=== PATIENT | female | born 1975 | race Caucasian/White ===

== ENCOUNTER 2019-07-22 20:33 | Emergency (ER) | payer SELFPAY ==
[~2019-07-22] VITALS: Ht 162.6 cm; Wt 84.0 kg
--- NOTE | 2019-07-22 20:42 | NUR ---
C-COLLAR PLACED IN TRIAGE.
[2019-07-22 21:25] LABS: BASOPHILS # (AUTO) 0.1 X10'3 (0-0.2); BASOPHILS % (AUTO) 1.4 % (0-1); EOSINOPHILS % (AUTO) 0.6 % (0-6); HEMATOCRIT 42.3 % (35.0-45.0); HEMOGLOBIN 13.8 g/dl (12.0-16.0); LYMPHOCYTES # (AUTO) 1.8 X10'3 (1.1-4.8); MEAN CORPUSCULAR HEMOGLOBIN 28.4 PG (27.0-31.0); MEAN CORPUSCULAR HGB CONC 32.7 g/dL (33.0-36.5); MEAN CORPUSCULAR VOLUME 86.8 FL (78-98); MEAN PLATELET VOLUME 8.2 FL (7.4-10.4); MONOCYTES # (AUTO) 0.4 X10'3 (0-0.9); MONOCYTES % (AUTO) 9.4 % (2-12); NEUTROPHILS % (AUTO) 46.6 % (42-75); PLATELET COUNT 314 X10'3 (140-440); RED BLOOD COUNT 4.87 X10'6 (4.20-5.60); RED CELL DISTRIBUTION WIDTH 13.3 % (11.5-14.5); WHITE BLOOD COUNT 4.3 X10'3 (4.5-11.0)
[2019-07-22] MEDS ORDERED: normal saline 1000ML IV soln IVB ONE (21:25)
[2019-07-22] MEDS ORDERED: ondansetron/PF 4mg/2ml inj IV ONE (21:25)
[2019-07-22] MEDS ORDERED: LORazepam 2 mg/ml vial IV ONE (21:25)
[2019-07-22 21:43] LABS: ALANINE AMINOTRANSFERASE 30 U/L (12-78); ALBUMIN 3.9 G/DL (3.4-5.0); ALBUMIN/GLOBULIN RATIO 1.1 (1.1-1.5); ALKALINE PHOSPHATASE 48 IU/L (46-116); ANION GAP 9 (8-16); ASPARTATE AMINO TRANSFERASE 34 U/L (10-37); BILIRUBIN,TOTAL 0.2 MG/DL (0.1-1.0); BLOOD UREA NITROGEN 8 MG/DL (7-18); BUN/CREATININE RATIO 10.5 (6.6-38.0); CALCIUM 8.5 MG/DL (8.5-10.1); CHLORIDE 109 MMOL/L (99-107); CREATININE 0.76 MG/DL (0.40-0.90); GLUCOSE 101 MG/DL (70-104); LIPASE 107 U/L (73-393); POTASSIUM 3.8 MMOL/L (3.5-5.1); SODIUM 146 MMOL/L (135-145); TOTAL CARBON DIOXIDE 27.9 MMOL/L (24-32); TOTAL PROTEIN 7.4 G/DL (6.4-8.2); eGFR 83 ML/MIN
[2019-07-22] MEDS ORDERED: LORA1TAB PO (22:06)
[2019-07-22] MEDS ORDERED: GABA300C PO (22:06)
[2019-07-22] MEDS ORDERED: folic acid 1mg/0.2ml inj IV ONE (22:10)
[2019-07-22] MEDS ORDERED: thiamine 100mg/ml 2ml inj. IV ONE (22:10)
[2019-07-22 22:23] VITALS: BP 132/72
== END 2019-07-22 22:51 | disposition home or self-care (01) ==
LOC: ER 20:34
DX: S09.90XA Unspecified injury of head, initial encounter (principal); M54.2 Cervicalgia; F10.229 Alcohol dependence with intoxication, unspecified; F41.9 Anxiety disorder, unspecified; Z88.0 Allergy status to penicillin; Z79.899 Other long term (current) drug therapy; W01.0XXA Fall on same level from slipping, tripping and stumbling without subsequent striking against object, initial encounter; Y93.89 Activity, other specified; Y92.89 Other specified places as the place of occurrence of the external cause; Y99.8 Other external cause status; Y90.9 Presence of alcohol in blood, level not specified
CPT/HCPCS: 36415; 70450; 72125; 80053; 83690; 85025; 96374; 96375; 99284; J2060; J2405; J3411; J3490; J7030